=== PATIENT | female | born 1980 | race Caucasian/White ===

== ENCOUNTER 2017-02-01 15:48 | Emergency (ER) | payer MEDICARE ==
[2014-12-17 00:55] VITALS: BMI 55.0
[~2017-02-01 15:48] MED LIST: ADVAIR 250/501 DISK INH; BENZONATATE200 MG PO; BREO ELLIPTA 11 EACH INH; COLACE100 MG PO; DUTOPROL 50-121 EACH PO; FLUTICASONE PRO16 GM NASAL; GLUCOPHAGE500 MG PO; GLUCOTROL 5 MG T5 MG PO; HYDROCHLOROTHIA25 MG PO; IPRAT-ALBUT 0.5-3 ML UPD; LACTINEX GRANUL1 PCK PO; LEVAQUIN750 MG PO; METAMUCIL FIB1 WAFER PO; NORVASC10 MG PO; OMNICEF300 MG PO; PROTONIX40 MG PO; PULMICORT0.5 MG/21 UPD; SINGULAIR10 MG PO; STERAPRED 5MG 125 MG PO; VENTOLIN HFA18 GM INH; ZITHROMAX TRI-500 MG PO
== END 2017-02-01 17:16 | disposition home or self-care (01) ==
LOC: D.ER 15:48
DX: M54.5 Low back pain (principal); S39.012A Strain of muscle, fascia and tendon of lower back, initial encounter; X58.XXXA Exposure to other specified factors, initial encounter; Y93.89 Activity, other specified; Y92.019 Unspecified place in single-family (private) house as the place of occurrence of the external cause; M54.30 Sciatica, unspecified side; F17.200 Nicotine dependence, unspecified, uncomplicated; I10 Essential (primary) hypertension; E11.9 Type 2 diabetes mellitus without complications; Z79.4 Long term (current) use of insulin

== ENCOUNTER 2017-03-19 15:57 | Emergency (ER) | payer MEDICARE, MEDICAID ==
[2014-12-17 00:55] VITALS: BMI 55.0
== END 2017-03-19 17:43 | disposition home or self-care (01) ==
LOC: D.ER 15:57
DX: R00.2 Palpitations (principal); I10 Essential (primary) hypertension; E11.9 Type 2 diabetes mellitus without complications; Z79.4 Long term (current) use of insulin

== ENCOUNTER 2017-10-24 16:33 | Emergency (ER) | payer MEDICARE, MEDICAID ==
[~2017-10-24] VITALS: Ht 167.6 cm; Wt 153.6 kg
[2017-10-24 16:44] VITALS: Ht 167.6 cm; Wt 153.6 kg
[2017-10-24] MEDS ORDERED: ADVAIR 500/501 DISK INH (16:48)
[2017-10-24] MEDS ORDERED: REQUIP1 MG PO (16:49)
[2017-10-24] MEDS ORDERED: LIPITOR20 MG PO (16:49)
[2017-10-24] MEDS ORDERED: VIBRAMYCIN 100100 MG PO (16:49)
[2017-10-24] MEDS ORDERED: NEURONTIN 300300 MG PO (16:50)
[2017-10-24] MEDS ORDERED: VISTARIL50 MG PO (17:38)
[2017-10-24 17:54] VITALS: BP 145/84
== END 2017-10-24 18:05 | disposition home or self-care (01) ==
LOC: D.ER 16:33
DX: T78.49XA Other allergy, initial encounter (principal); X58.XXXA Exposure to other specified factors, initial encounter; J45.909 Unspecified asthma, uncomplicated; L50.9 Urticaria, unspecified; E11.9 Type 2 diabetes mellitus without complications; I10 Essential (primary) hypertension; F17.200 Nicotine dependence, unspecified, uncomplicated

== ENCOUNTER 2018-01-14 04:37 | Inpatient (IN) | payer MEDICARE, MEDICAID ==
[~2018-01-14] VITALS: Ht 167.6 cm; Wt 159.1 kg
--- NOTE | ~2018-01-14 | MORECARE ---
CASE MANAGEMENT DISCHARGE SUMMARY PATIENT: CHIOMA ALVARADO UNIT: [id number] ADM DATE: 01/14/18 AGE: 37 : [birth year] SEX: F ROOM/BED: D.1211 AUTHOR: ANDREW,DOC PHYSICIAN: REFERRING PHYSICIAN: TANESHA GRAJEDA MD DATE OF SERVICE: 01/16/18 Discharge Plan Patient Name: CHIOMA ALVARADO Facility: [facility]:[place] : 1980 Planned Disposition: Home Anticipated Discharge Date: Discharge Date: 01/16/2018 Expected LOS: Initial Reviewer: [email or web address] Initial Review Date: 01/15/2018 Generated: 01/16/18 8:48 pm Comments DCP- Discharge Planning Updated by [email or web address]: Gabrielle Lin on 01/15/18 8:[address] Patient Name: CHIOMA ALVARADO Admission Status: ER Accout number: [id number] Admission Date: 01-14-2018 : 1980 Admission Diagnosis: Attending: TANESHA GRAJEDA Current LOS: 1 Anticipated DC Date: Planned Disposition: Home Primary Insurance: [facility] MEDICARE SOLUTIONS Discharge Planning Comments: CM met with patient at bedside after obtaining verbal consent. Patient states she plans on returning home after discharge. Patient denies any discharge needs at this time. CM will continue to follow and assist as needed for discharge planning / needs. Supervisor Uranium Processing: Gabrielle Lin DCPIA - Discharge Planning Initial Assessment Updated by [email or web address]: Gabrielle Lin on 01/15/18 9:41 pm * Is the patient Alert and Oriented? Yes * How many steps to enter\exit or inside your home? * PCP [facility] * Pharmacy [facility] * Preadmission Environment Home Alone * ADLs Independent * Equipment Nebulizer * Other Equipment CPAP DOESN'T USE * List name and contact numbers for known caregivers / representatives who currently or will assist patient after discharge: DAREN SHEPARD [phone] MOTHER * Verbal permission to speak to the caregivers and representatives has been obtained from the patient. Yes * Community resources currently utilized None * Additional services required to return to the preadmission environment? No * Can the patient safely return to the preadmission environment? Yes * Has this patient been hospitalized within the prior 30 days at any hospital? No Last DP export: 01/15/18 8:45 Patient Name: CHIOMA ALVARADO Page [id number] at 1949 All edits/amendments must be made on the electronic document DICTATION DATE: 01/16/181947 FLAT SPRING ASSEMBLER: PATRICIA 01/16/181947 RPT#: [id number] DC DATE:01/16/18 STATUS: DIS IN [facility] [address] [place] [address] END OF REPORT
--- NOTE | ~2018-01-14 | CN ---
PATIENT NAME:CHIOMA ALVARADO MEDICAL RECORD: [id number] : [birth year] LOCATION:D.M3 D.1211 ADMIT DATE: 01/14/18 ACCOUNT: [id number] CONSULTING PHYSICIAN: JIMMY ABRAMS MD REFERRING PHYSICIAN: TANESHA GRAJEDA MD DATE OF CONSULTATION: 01/15/2018 CONSULT REQUESTING PHYSICIAN: Tanesha Grajeda MD REASON FOR CONSULTATION: Pulmonary nodule. HISTORY OF PRESENT ILLNESS: Ms. Alvarado is a 37-year-old female who was admitted with abdominal pain and diarrhea. She has a CT scan of the abdomen, which showed left lower lobe 8 mm nodule. Now, the diarrhea is improved. She does have a history of asthma and that is very well controlled. REVIEW OF SYSTEMS: As in history of present illness. PAST MEDICAL HISTORY: 1. Asthma. 2. Diabetes mellitus. 3. Fibromyalgia. 4. Hyperlipidemia. 5. Morbid obesity. ALLERGIES: SHE IS ALLERGIC TO AMOXICILLIN. MEDICATIONS: On MicroEval is reviewed. PERSONAL AND SOCIAL HISTORY: The patient still continue to smoke. She is a nondrinker. FAMILY HISTORY: Noncontributory. PHYSICAL EXAMINATION: GENERAL: Now, the patient is lying comfortably. She is not in acute distress. VITAL SIGNS: The blood pressure 148/88, pulse is 77, respiration 22, temperature 98.4, SpO2 is 94% on room air. HEENT: Conjunctivae are pink. Sclerae are not icteric. NECK: Supple, no JVD. CHEST: The chest excursion is minimal on both sides. No wheeze, no rales. HEART: Rhythm regular, normal sound, no murmur. ABDOMEN: Soft, bowel sounds present. No hepatosplenomegaly. RECTAL: Deferred. EXTREMITIES: No cyanosis, no clubbing, no pedal edema. SKIN: Warm, normal turgor. CENTRAL NERVOUS SYSTEM: The patient is awake and alert. There are no obvious cranial nerve abnormality. The gait was not tested. LABORATORY DATA: CT scan of the abdomen: There is an 8-mm nodule in the left lower lobe. The patient has no nodule in November [address] scan of the chest. CONSULT REPORT [id number] CHIOMA ALVARADO IMPRESSION: 1. Tobacco dependence syndrome. 2. History of asthma. 3. Diarrhea. 4. Morbid obesity. RECOMMENDATION: 1. The patient was counseled to quit smoking. 2. Check the CT scan of the chest. 3. Continue her present nebulized medication. 4. Check the LISA level, check the fungal serology. Dr. Grajeda, thank you for involving me in the care of Ms. Alvarado. TRANSINT:[id number] Voice Confirmation ID: [id number] DOCUMENT ID: [id number] JIMMY ABRAMS MD CC: [id number] DICTATION DATE: 01/15/181427 MEDICAL UNIT SECRETARY: 01/15/18 1518 ADM IN [place] [id number] [place] [id number]
--- NOTE | ~2018-01-14 | MORECARE ---
CASE MANAGEMENT DISCHARGE SUMMARY PATIENT: CHIOMA ALVARADO UNIT: [id number] ADM DATE: 01/14/18 AGE: 37 : [birth year] SEX: F ROOM/BED: D.1211 AUTHOR: ANDREW,DOC PHYSICIAN: REFERRING PHYSICIAN: TANESHA GRAJEDA MD DATE OF SERVICE: 01/15/18 Discharge Plan Patient Name: CHIOMA ALVARADO Facility: [facility]:[place] : 1980 Planned Disposition: Home Anticipated Discharge Date: Discharge Date: Expected LOS: Initial Reviewer: [email or web address] Initial Review Date: 01/15/2018 Generated: 01/15/18 10:45 pm Comments DCP- Discharge Planning Updated by [email or web address]: Gabrielle Lin on 01/15/18 8:[address] Patient Name: CHIOMA ALVARADO Admission Status: ER Accout number: [id number] Admission Date: 01-14-2018 : 1980 Admission Diagnosis: Attending: TANESHA GRAJEDA Current LOS: 1 Anticipated DC Date: Planned Disposition: Home Primary Insurance: [facility] MEDICARE SOLUTIONS Discharge Planning Comments: CM met with patient at bedside after obtaining verbal consent. Patient states she plans on returning home after discharge. Patient denies any discharge needs at this time. CM will continue to follow and assist as needed for discharge planning / needs. Central Supply Clerk: Gabrielle Lin DCPIA - Discharge Planning Initial Assessment Updated by [id number]: Gabrielle Lin on 01/15/18 9:41 pm * Is the patient Alert and Oriented? Yes * How many steps to enter\exit or inside your home? * PCP WILL[facility] * Pharmacy [facility] * Preadmission Environment Home Alone * ADLs Independent * Equipment Nebulizer * Other Equipment CPAP DOESN'T USE * List name and contact numbers for known caregivers / representatives who currently or will assist patient after discharge: DAREN SHEPARD [phone] MOTHER * Verbal permission to speak to the caregivers and representatives has been obtained from the patient. Yes * Community resources currently utilized None * Additional services required to return to the preadmission environment? No * Can the patient safely return to the preadmission environment? Yes * Has this patient been hospitalized within the prior 30 days at any hospital? No Patient Name: CHIOMA ALVARADO Page [id number] at 2145 All edits/amendments must be made on the electronic document DICTATION DATE: 01/15/182144 SUPERVISOR TELEPHONE ANSWERING SERVICE: PATRICIA 01/15/182144 RPT#: [id number] DC DATE: STATUS: ADM IN [facility] [address] [place] [address] END OF REPORT
[~2018-01-14 04:37] MED LIST changes: +ADVAIR 500/501 DISK INH; +LIPITOR20 MG PO; +NEURONTIN 300300 MG PO; +REQUIP1 MG PO; +VIBRAMYCIN 100100 MG PO; +VISTARIL50 MG PO
[2018-01-14 05:15] LABS: BASOPHILS 0.4 % (0-2); EOSINOPHILS 0.9 % (0-7); HEMATOCRIT 48.1 % (36.0-48.0); HEMOGLOBIN 16.4 g/dL (12-16); IMMATURE GRANULOCYTES 0.2 % (0-5); LYMPHOCYTES 15.3 % (15-50); MCHC 34.1 g/dL (31.0-37.0); MCV 87.9 fL (80.0-100.0); MEAN PLATELET VOLUME 11.4 fL (7.4-10.4); MONOCYTES 9.9 % (2-11); NEUTROPHILS 73.3 % (40-80); RBC 5.47 10x6/uL (4.00-5.40); RDW 13.7 % (11.5-14.5); WBC 10.6 10x3/uL (4.8-10.8)
[2018-01-14 05:24] LABS: PLATELET COUNT 247 10x3/uL (130-400)
[2018-01-14 05:31] LABS: APPEARANCE HAZY (CLEAR); BILIRUBIN NEGATIVE (NEGATIVE); COLOR YELLOW (YELLOW); GLUCOSE NEGATIVE (NEGATIVE); KETONE NEGATIVE (NEGATIVE); NITRITE NEGATIVE (NEGATIVE); PROTEIN TRACE mg/dL (NEGATIVE); SPECIFIC GRAVITY 1.005 (1.005-1.020); UROBILINOGEN NORMAL (NORMAL)
[2018-01-14 05:32] LABS: ALBUMIN 3.9 g/dL (3.4-5.0); ALKALINE PHOSPHATASE 80 U/L (46-116); ALT (SGPT) 33 U/L (10-68); CALC OSMOLALITY 274 mosm/kg (275-300); CALCIUM 9.5 mg/dL (8.5-10.1); CARBON DIOXIDE 28.1 mmol/L (21.0-32.0); CHLORIDE - SERUM 103 mmol/L (98-107); CREATININE - SERUM 0.8 mg/dL (0.6-1.3); POTASSIUM - SERUM 3.9 mmol/L (3.5-5.1); PROTEIN - SERUM 8.3 g/dL (6.4-8.2); SODIUM 137 mmol/L (136-145); UREA NITROGEN 14 mg/dL (7-18); eGFR NON AFRICAN AMERICAN 85 mL/min (90-120)
[2018-01-14 05:35] LABS: AMYLASE - SERUM 23 U/L (25-115); GLUCOSE 94 mg/dL (74-106); LIPASE 92 U/L (73-393)
[2018-01-14 05:36] LABS: TROPONIN-I < 0.017 ng/mL (0.000-0.060)
[2018-01-14 05:38] LABS: BACTERIA MODERATE /hpf (NONE SEEN); EPITHELIAL CELLS 0-5 /hpf (0-5); MUCUS <1+ /lpf (NONE SEEN); RED CELLS - URINE RARE /hpf (0-5); WHITE CELLS - URINE 0-5 /hpf (0-5)
[2018-01-14 14:59] VITALS: BMI 56.5
[2018-01-14 21:30] VITALS: BP 194/70
[2018-01-14] MEDS ORDERED: VENTOLIN HFA18 GM INH (21:32)
[2018-01-14] MEDS ORDERED: ALBUTEROL (21:36)
[2018-01-14] MEDS ORDERED: [UNRECOGNIZED DRUG - OTHER] (21:36)
[2018-01-14] MEDS ORDERED: KLONOPIN1 MG PO (21:37)
[2018-01-14] MEDS ORDERED: IMODIUM2 MG PO (21:38)
[2018-01-14] MEDS ORDERED: TUMS X-STR300 MG PO (21:38)
[2018-01-15 03:13] VITALS: BP 194/70; Ht 167.6 cm; Wt 159.1 kg
[2018-01-15 05:06] VITALS: BP 135/53
[2018-01-15 06:59] LABS: BASOPHILS 0.5 % (0-2); EOSINOPHILS 2.8 % (0-7); HEMATOCRIT 41.4 % (36.0-48.0); HEMOGLOBIN 13.7 g/dL (12-16); IMMATURE GRANULOCYTES 0.2 % (0-5); LYMPHOCYTES 22.7 % (15-50); MCH 29.5 pg (26.0-34.0); MCHC 33.1 g/dL (31.0-37.0); MCV 89.2 fL (80.0-100.0); MEAN PLATELET VOLUME 11.3 fL (7.4-10.4); MONOCYTES 9.1 % (2-11); NEUTROPHILS 64.7 % (40-80); RBC 4.64 10x6/uL (4.00-5.40); RDW 13.9 % (11.5-14.5)
[2018-01-15 07:01] LABS: PLATELET COUNT 185 10x3/uL (130-400)
[2018-01-15 07:33] LABS: ALBUMIN 3.2 g/dL (3.4-5.0); ALKALINE PHOSPHATASE 64 U/L (46-116); ALT (SGPT) 30 U/L (10-68); BILIRUBIN - TOTAL 0.41 mg/dL (0.2-1.3); CALC OSMOLALITY 276 mosm/kg (275-300); CALCIUM 8.1 mg/dL (8.5-10.1); CARBON DIOXIDE 24.7 mmol/L (21.0-32.0); CHLORIDE - SERUM 105 mmol/L (98-107); CREATININE - SERUM 0.8 mg/dL (0.6-1.3); GLUCOSE 100 mg/dL (74-106); POTASSIUM - SERUM 4.1 mmol/L (3.5-5.1); PROTEIN - SERUM 6.3 g/dL (6.4-8.2); SODIUM 139 mmol/L (136-145); UREA NITROGEN 11 mg/dL (7-18); eGFR NON AFRICAN AMERICAN 85 mL/min (90-120)
[2018-01-15 07:34] VITALS: BP 140/76
[2018-01-15 11:18] VITALS: BP 148/88
[2018-01-15 15:57] VITALS: BP 143/78
[2018-01-15 20:00] VITALS: BP 144/74
[2018-01-16] VITALS: BP 138/70
[2018-01-16 04:00] VITALS: BP 149/85
[2018-01-16 06:45] LABS: BASOPHILS 0.5 % (0-2); EOSINOPHILS 2.1 % (0-7); HEMATOCRIT 40.2 % (36.0-48.0); HEMOGLOBIN 13.3 g/dL (12-16); IMMATURE GRANULOCYTES 0.2 % (0-5); LYMPHOCYTES 25.5 % (15-50); MCH 29.3 pg (26.0-34.0); MCHC 33.1 g/dL (31.0-37.0); MCV 88.5 fL (80.0-100.0); MEAN PLATELET VOLUME 11.4 fL (7.4-10.4); MONOCYTES 11.9 % (2-11); NEUTROPHILS 59.8 % (40-80); PLATELET COUNT 183 10x3/uL (130-400); RBC 4.54 10x6/uL (4.00-5.40); RDW 13.9 % (11.5-14.5); WBC 5.6 10x3/uL (4.8-10.8)
[2018-01-16 07:03] LABS: ALBUMIN 2.8 g/dL (3.4-5.0); ALKALINE PHOSPHATASE 65 U/L (46-116); ALT (SGPT) 29 U/L (10-68); BILIRUBIN - TOTAL 0.27 mg/dL (0.2-1.3); CALCIUM 7.7 mg/dL (8.5-10.1); CARBON DIOXIDE 25.6 mmol/L (21.0-32.0); CHLORIDE - SERUM 107 mmol/L (98-107); CREATININE - SERUM 0.7 mg/dL (0.6-1.3); GLUCOSE 100 mg/dL (74-106); MAGNESIUM - SERUM 1.6 mg/dL (1.8-2.4); PROTEIN - SERUM 6.1 g/dL (6.4-8.2); SODIUM 140 mmol/L (136-145); eGFR NON AFRICAN AMERICAN > 90 mL/min (90-120)
[2018-01-16 07:07] LABS: CALC OSMOLALITY 276 mosm/kg (275-300); POTASSIUM - SERUM 3.4 mmol/L (3.5-5.1); UREA NITROGEN 7 mg/dL (7-18)
[2018-01-16 07:34] VITALS: BP 135/76
[2018-01-16 11:25] VITALS: BP 147/91
[2018-01-16] MEDS ORDERED: FLAGYL500 MG PO (15:25)
[2018-01-16] MEDS ORDERED: LEVAQUIN750 MG PO (15:27)
[2018-01-16 15:29] VITALS: BP 150/86
[2018-01-17 18:07] LABS: ANGIOTENSIN CONVERTING ENZYME 48 U/L (14-82)
== END 2018-01-16 17:16 | disposition home or self-care (01) | DRG 392 ==
LOC: D.ER 04:37 → D.M3 06:52 → D.EDHOLD 06:52 → D.M3 20:05
PROVIDERS: Family Medicine; Internal Medicine Pulmonary Disease
DX: K52.9 Noninfective gastroenteritis and colitis, unspecified (principal); Z68.43 Body mass index [BMI] 50.0-59.9, adult; N76.0 Acute vaginitis; E66.01 Morbid (severe) obesity due to excess calories; F17.200 Nicotine dependence, unspecified, uncomplicated; R91.1 Solitary pulmonary nodule; M79.7 Fibromyalgia; E78.5 Hyperlipidemia, unspecified; I10 Essential (primary) hypertension; E11.65 Type 2 diabetes mellitus with hyperglycemia

== ENCOUNTER → 2018-07-23 12:34 | Outpatient (CLI) | payer MEDICARE, MEDICAID ==
[2018-01-15 03:13] VITALS: BMI 56.6
[~2018-07-23 12:34] MED LIST changes: +ALBUTEROL; +FLAGYL500 MG PO; +IMODIUM2 MG PO; +KLONOPIN1 MG PO; +TUMS X-STR300 MG PO; +[UNRECOGNIZED DRUG - OTHER]
== END | disposition home or self-care (01) ==
LOC: D.CT 12:34
PROVIDERS: ATTEND Emergency Medicine
DX: R91.8 Other nonspecific abnormal finding of lung field (principal)

== ENCOUNTER 2018-12-16 23:59 | Emergency (ER) | payer MEDICARE, MEDICAID ==
[2018-01-15 03:13] VITALS: Ht 167.6 cm; Wt 159.5 kg
[~2018-12-16] VITALS: Ht 167.6 cm; Wt 159.5 kg
[2018-12-17] MEDS ORDERED: LEVAQUIN750 MG PO (00:59)
[2018-12-17] MEDS ORDERED: TYLENOL W/CODEI1 TAB PO (00:59)
[2018-12-17 01:34] VITALS: BP 143/90
== END 2018-12-17 01:35 | disposition home or self-care (01) ==
LOC: D.ER 23:59
DX: J06.9 Acute upper respiratory infection, unspecified (principal); J40 Bronchitis, not specified as acute or chronic

== ENCOUNTER 2019-04-17 19:35 | Emergency (ER) | payer MEDICARE, MEDICAID ==
[~2019-04-17] VITALS: Ht 167.6 cm; Wt 163.6 kg
[~2019-04-17 19:35] MED LIST changes: +TYLENOL W/CODEI1 TAB PO
[2019-04-17 19:43] VITALS: Ht 167.6 cm; Wt 163.6 kg
[2019-04-17] MEDS ORDERED: VENTOLIN HFA [SP8 GM INH (19:45)
[2019-04-17] MEDS ORDERED: AMRIX30 MG PO (19:46)
[2019-04-17] MEDS ORDERED: OMEPRAZOLE20 M1 PO (19:47)
[2019-04-17 20:07] LABS: BASOPHILS 0.5 % (0-2); BILIRUBIN NEGATIVE (NEGATIVE); EOSINOPHILS 2.6 % (0-7); GLUCOSE NEGATIVE (NEGATIVE); HEMOGLOBIN 15.8 g/dL (12-16); IMMATURE GRANULOCYTES 0.2 % (0-5); KETONE NEGATIVE (NEGATIVE); LYMPHOCYTES 28.3 % (15-50); MCH 29.4 pg (26.0-34.0); MCHC 32.9 g/dL (31.0-37.0); MCV 89.2 fL (80.0-100.0); MEAN PLATELET VOLUME 10.6 fL (7.4-10.4); MONOCYTES 7.2 % (2-11); NEUTROPHILS 61.2 % (40-80); NITRITE NEGATIVE (NEGATIVE); RBC 5.38 10x6/uL (4.00-5.40); RDW 14.2 % (11.5-14.5); UROBILINOGEN NORMAL (NORMAL); WBC 10.3 10x3/uL (4.8-10.8)
[2019-04-17 20:08] LABS: PLATELET COUNT 301 10x3/uL (130-400)
[2019-04-17 20:11] LABS: HCG URINE NEGATIVE (NEGATIVE)
[2019-04-17 20:18] LABS: CALC OSMOLALITY 277 mosm/kg (275-300); CALCIUM 8.9 mg/dL (8.5-10.1); CARBON DIOXIDE 24.3 mmol/L (21.0-32.0); CHLORIDE - SERUM 103 mmol/L (98-107); CREATININE - SERUM 0.8 mg/dL (0.6-1.3); GLUCOSE 103 mg/dL (74-106); POTASSIUM - SERUM 3.9 mmol/L (3.5-5.1); SODIUM 140 mmol/L (136-145); UREA NITROGEN 10 mg/dL (7-18); eGFR NON AFRICAN AMERICAN 85 mL/min (90-120)
[2019-04-17 20:24] LABS: ALBUMIN 3.9 g/dL (3.4-5.0); ALKALINE PHOSPHATASE 98 U/L (30-120); ALT (SGPT) 19 U/L (10-68); BILIRUBIN - TOTAL 0.25 mg/dL (0.2-1.3); PROTEIN - SERUM 8.1 g/dL (6.4-8.2)
[2019-04-17] MEDS ORDERED: PREDNISONE10 MG PO (22:04)
[2019-04-17] MEDS ORDERED: CYCLOBENZAPRINE10 MG PO (22:04)
[2019-04-17 22:37] VITALS: BP 140/94
== END 2019-04-17 22:37 | disposition home or self-care (01) ==
LOC: D.ER 19:35
PROVIDERS: Family Medicine
DX: M51.26 Other intervertebral disc displacement, lumbar region (principal); R20.2 Paresthesia of skin; M54.32 Sciatica, left side; E11.9 Type 2 diabetes mellitus without complications; I10 Essential (primary) hypertension; E78.5 Hyperlipidemia, unspecified

== ENCOUNTER 2019-07-19 20:09 | Emergency (ER) | payer MEDICARE, MEDICAID ==
[~2019-07-19] VITALS: Ht 167.6 cm; Wt 163.6 kg
[~2019-07-19 20:09] MED LIST changes: +AMRIX30 MG PO; +CYCLOBENZAPRINE10 MG PO; +OMEPRAZOLE20 M1 PO; +PREDNISONE10 MG PO; +VENTOLIN HFA [SP8 GM INH
[2019-07-19 20:15] VITALS: Ht 167.6 cm; Wt 163.6 kg
[2019-07-19 21:36] LABS: BASOPHILS 0.4 % (0-2); EOSINOPHILS 2.6 % (0-7); HEMOGLOBIN 15.2 g/dL (12-16); IMMATURE GRANULOCYTES 0.2 % (0-5); LYMPHOCYTES 22.6 % (15-50); MCH 28.8 pg (26.0-34.0); MCHC 32.3 g/dL (31.0-37.0); MEAN PLATELET VOLUME 10.7 fL (7.4-10.4); MONOCYTES 7.4 % (2-11); NEUTROPHILS 66.8 % (40-80); PLATELET COUNT 241 10x3/uL (130-400); RBC 5.28 10x6/uL (4.00-5.40); RDW 14.3 % (11.5-14.5); WBC 10.2 10x3/uL (4.8-10.8)
[2019-07-19 21:48] LABS: APTT 25.4 SECONDS (22.8-39.4); INR 0.93 (0.85-1.17); PROTIME 12.4 SECONDS (11.6-15.0)
[2019-07-19 21:49] LABS: BILIRUBIN NEGATIVE (NEGATIVE); GLUCOSE NEGATIVE (NEGATIVE); KETONE NEGATIVE (NEGATIVE); NITRITE NEGATIVE (NEGATIVE); UROBILINOGEN NORMAL (NORMAL)
[2019-07-19 22:30] LABS: CALC OSMOLALITY 275 mosm/kg (275-300); CALCIUM 8.8 mg/dL (8.5-10.1); CARBON DIOXIDE 23.9 mmol/L (21.0-32.0); CHLORIDE - SERUM 102 mmol/L (98-107); CREATININE - SERUM 0.7 mg/dL (0.6-1.3); GLUCOSE 92 mg/dL (74-106); POTASSIUM - SERUM 3.9 mmol/L (3.5-5.1); SODIUM 138 mmol/L (136-145); UREA NITROGEN 13 mg/dL (7-18); eGFR NON AFRICAN AMERICAN > 90 mL/min (90-120)
[2019-07-19 22:43] LABS: ALBUMIN 3.7 g/dL (3.4-5.0); ALKALINE PHOSPHATASE 97 U/L (30-120); ALT (SGPT) 24 U/L (10-68); BILIRUBIN - TOTAL 0.35 mg/dL (0.2-1.3); CKMB 1.1 U/L (0.0-3.6); CREATINE KINASE 244 UL (21-215); PROTEIN - SERUM 7.7 g/dL (6.4-8.2); THYROID STIMULATING HORMONE 3.32 uIU/mL (0.36-3.74); TROPONIN-I < 0.017 ng/mL (0.000-0.060)
[2019-07-19 23:10] VITALS: BP 157/95
== END 2019-07-19 23:11 | disposition home or self-care (01) ==
LOC: D.ER 20:09
PROVIDERS: Family Medicine
DX: R00.2 Palpitations (principal); R07.9 Chest pain, unspecified; E11.40 Type 2 diabetes mellitus with diabetic neuropathy, unspecified; I10 Essential (primary) hypertension; Z72.0 Tobacco use; J45.909 Unspecified asthma, uncomplicated